=== PATIENT | female | born 1965 | race Hispanic/Latino ===

== ENCOUNTER 2021-03-08 12:43 | Outpatient (CLI) | payer OTHER | END 2021-03-08 12:44 | disposition home or self-care (01) | LOC: MADLAB 12:43 → MADRAD 12:44 | PROVIDERS: ATTEND Family Medicine | DX: U07.1 COVID-19 (principal); J12.82 Pneumonia due to coronavirus disease 2019 | CPT/HCPCS: 71046 ==